=== PATIENT | female | born 1955 | race Caucasian/White ===

== ENCOUNTER 2023-04-06 19:43 | Emergency (ER) | payer OTHER, BC ==
[2023-04-06 19:53] VITALS: RESP 18; TEMP 98.1; BMI 34.7
[2023-04-06] MEDS ORDERED: DEXAMETHASONE SOD PHOSPHATE 10 MG/1 ML VIAL IVPUSH ONE (20:27)
[2023-04-06] MEDS ORDERED: ALBUTEROL SULFATE 0.021% (0.63 MG/3 ML) VIAL.NEB NEB ONE (20:33)
[2023-04-06] MEDS ORDERED: ALBUTEROL SO4 0.083% IH SOL 2.5 MG/3 ML VIAL.NEB. NEB ONE (20:50)
[2023-04-06 21:24] LABS: BASO % 1.1 % (0-2.0); EOS % 4.5 % (0-4.5); HEMATOCRIT 35.4 % (32.4-45.2); HEMOGLOBIN 11.4 GM/dL (10.7-15.3); LYMPH % 28.8 % (8-40); MCH 26.3 pg (25.7-33.7); MCHC 32.2 g/dl (32.0-36.0); MEAN CELL VOLUME 81.7 fl (80-96); MEAN PLT VOLUME 9.1 fl (7.5-11.1); MONO % 11.9 % (3.8-10.2); NEUT % 53.7 % (42.8-82.8); PLATELET COUNT 224 10^3/uL (134-434); RBC 4.34 M/mm3 (3.60-5.2); RDW 18.3 % (11.6-15.6); WHITE BLOOD COUNT 7.4 K/mm3 (4.0-10.0)
[2023-04-06 21:31] LABS: POTASSIUM 4.2 mmol/L (3.5-5.1)
[2023-04-06 21:33] LABS: CALCIUM 9.4 mg/dL (8.5-10.1)
[2023-04-06 21:34] LABS: ALBUMIN 3.9 g/dl (3.4-5.0); BLOOD UREA NITROGEN 12.4 mg/dL (7-18)
[2023-04-06 21:37] LABS: CREATININE 0.5 mg/dL (0.55-1.3)
[2023-04-06 21:39] LABS: BILIRUBIN,TOTAL 0.7 mg/dL (0.2-1)
[2023-04-06 23:55] VITALS: BP 154/76; PULSE 87
== END 2023-04-06 23:56 | disposition home or self-care (01) ==
LOC: JER 19:43
PROC: 3E033GC Introduction of Other Therapeutic Substance into Peripheral Vein, Percutaneous Approach (ICD-10-PCS; principal; 2023-04-06)
PROC: 3E0F7GC Introduction of Other Therapeutic Substance into Respiratory Tract, Via Natural or Artificial Opening (ICD-10-PCS; 2023-04-06)
DX: R06.89 Other abnormalities of breathing (principal); R07.0 Pain in throat
CPT/HCPCS: 36415; 70491-TC; 80053; 85025; 99285-25; J1100; Q9967